=== PATIENT | male | born 1980 | race Two or more races ===

== ENCOUNTER 2020-06-18 06:00 | Day surgery (SDC) | payer OTHER ==
[~2020-06-18] VITALS: Ht 167.6 cm; Wt 88.5 kg
[~2020-06-18 06:00] MED LIST: ASPI1TAB19 PO; MELO1TAB56 PO; META-167 PO; METO25TA93 PO; OME20T PO; ZOLP10TA6 PO
[2020-06-18] MEDS ORDERED: IODIXANOL 320MG/ML 100ML BTL IV ONE (07:23)
[2020-06-18] MEDS ORDERED: LIDOCAINE 2%HCL (LOCAL ANESTH.) INJ 20ML MDV ONE (07:23)
[2020-06-18] MEDS ORDERED: HEPARIN SODIUM (PORCINE) 5000 UNITS/ML 1ML VIAL ONE (07:59)
[2020-06-18] MEDS ORDERED: ANGIOMAX 250 MG VIAL IV ONE (07:59)
[2020-06-18] MEDS ORDERED: SODIUM CHL 0.9% 0 ML ONE (08:00)
[2020-06-18] MEDS ORDERED: VERAPAMIL 2.5MG/ML INJ 2ML VIAL IV ONE (08:00)
[2020-06-18] MEDS ORDERED: MIDAZOLAM HCL 1MG/1ML-2 ML VIAL ONE (08:00)
[2020-06-18] MEDS ORDERED: fentaNYL CITRATE 100 MCG/2 ML VL ONE (08:00)
[2020-06-18] MEDS ORDERED: ACETAMINOPHEN 500 MG TAB PO PRN (10:00)
[2020-06-18] MEDS ORDERED: HYDROcodone-ACET 5/325MG TAB PO PRN (10:00)
[2020-06-18] MEDS ORDERED: ONDANSETRON HCL 4 MG/2 ML VIAL IV PRN (10:00)
== END 2020-06-18 11:43 | disposition home or self-care (01) ==
LOC: CATH 06:00
PROVIDERS: ATTEND Internal Medicine Cardiovascular Disease
DX: R94.39 Abnormal result of other cardiovascular function study (principal); K21.9 Gastro-esophageal reflux disease without esophagitis; G89.29 Other chronic pain; Z68.31 Body mass index [BMI] 31.0-31.9, adult; Z20.822 Contact with and (suspected) exposure to COVID-19; Z98.890 Other specified postprocedural states; Z79.899 Other long term (current) drug therapy; Z87.891 Personal history of nicotine dependence; Z79.82 Long term (current) use of aspirin
CPT/HCPCS: 93458; C1769; C1887; C1894; J1644; J2250; J3010; J7030; Q9967; U0003; 99152